=== PATIENT | female | born 1960 | race Two or more races ===

== ENCOUNTER 2019-11-29 19:02 | Emergency (ER) | payer BC ==
[~2019-11-29] VITALS: Ht 167.6 cm; Wt 71.0 kg
[2019-11-29] MEDS ORDERED: SODIUM CHLORIDE 0.9% 1,000 ML IV ONE (19:56)
[2019-11-29] MEDS ORDERED: LORAZEPAM 2MG/ML CPJ IV STA (19:56)
[2019-11-29] MEDS ORDERED: OLANZAPINE 10 MG/VIAL IM STA (19:56)
[2019-11-29 21:41] LABS: BASOPHILS % 1.1 % (0.0-2.0); EOSINOPHILS % 0.3 % (0.0-5.0); HEMATOCRIT. 43.2 % (36.0-48.0); HEMOGLOBIN. 14.8 g/dL (12.0-16.0); LYMPHOCYTES % 9.9 % (20.0-50.0); MEAN CORPUSCULAR HEMOGLOBIN 30.9 pg (28.0-32.0); MEAN CORPUSCULAR VOLUME 90.4 fL (81.0-99.0); MEAN PLATELET VOLUME 8.2 fl (7.4-10.4); MONOCYTES % 4.8 % (2.0-8.0); NEUTROPHILS % 83.9 % (40.0-76.0); PLATELET 245 x1000/uL (130-400); RED BLOOD CELL COUNT 4.78 mill/uL (4.2-5.4); RED CELL DISTRIBUTION WIDTH 12.4 % (11.6-14.6)
[2019-11-29 22:00] LABS: CHLORIDE 106 mEq/L (98-107)
[2019-11-29 22:05] LABS: ETHANOL BLOOD < 10 mg/dL
[2019-11-29 22:09] LABS: CREATINE KINASE 68 IU/L (26-192)
[2019-11-30 00:09] LABS: CLARITY URINE CLEAR (CLEAR); COLOR URINE YELLOW (YELLOW); KETONES URINE TRACE (NEGATIVE); LEUKOCYTE ESTERASE URINE NEGATIVE (NEGATIVE); NITRITE URINE NEGATIVE (NEGATIVE); OCCULT BLOOD URINE NEGATIVE (NEGATIVE); PH URINE 7.5 (4.5-8.0); PROTEIN URINE NEGATIVE (NEGATIVE); SPECIFIC GRAVITY URINE 1.012 (1.005-1.030); UROBILINOGEN URINE 0.2 E.U./dL (0.2-1.0)
[2019-11-30 00:33] LABS: *BARBITURATES SCREEN URINE NEGATIVE (NEGATIVE)
[2019-11-30 00:34] LABS: *AMPHETAMINES SCREEN URINE NEGATIVE (NEGATIVE); *BENZODIAZEPINES SCREEN URINE NEGATIVE (NEGATIVE); *COCAINE SCREEN URINE NEGATIVE (NEGATIVE); CANNABINOID URINE SCREEN NEGATIVE (NEGATIVE); METHADONE URINE SCREEN NEGATIVE (NEGATIVE); OPIATES URINE SCREEN NEGATIVE (NEGATIVE)
[2019-11-30 00:35] LABS: PHENCYCLIDINE URINE SCREEN NEGATIVE (NEGATIVE)
[2019-11-30 11:30] VITALS: BP 136/72
== END 2019-11-30 13:40 | disposition home or self-care (01) ==
LOC: ER 19:02
DX: R41.82 Altered mental status, unspecified (principal); G93.40 Encephalopathy, unspecified
CPT/HCPCS: 36415; 70450; 71045; 80053; 80305; 80307; 80320; 80329; 81003; 82140; 82550; 82962; 83880; 84443; 84484; 85025; 93005; 96361; 96372; 96374; 99284; J2060; J3490; J7030; G0480